=== PATIENT | female | born 1955 | race Caucasian/White ===

== ENCOUNTER 2017-03-07 12:50 | Emergency (ER) | payer BC ==
[2017-03-07 12:55] VITALS: BP 178/94; BMI 23.6
--- NOTE | 2017-03-07 14:26 | DR.GENAD ---
HPI - PCP Primary Care Physician: MARCI - HPI Comment HPI Comment: PAIN NOTED AFTER EATING. DID NOT RESPOND TO MEDICATIONS AT HOME FOR REFLUX. PAIN IS WORSE TODAY. - Complaint/Symptoms Chief Complaint Doctors Comments: SUBSCABULAR CHEST PAIN RADIATING LT LEFT CHEST TIMES ONE DAY. Chief Complaint:: PATIENT STATED THAT SHE HAS HAD UPPER BACK PAIN AND CHEST PAIN SINCE SHE ATE SUPPER LAST NIGHT - Nurses notes reviewed Nurses Notes Review: Yes - Source History Provided: Patient - Mode of Arrival Mode of Arrival: Ambulatory - Timing Onset of Chief Complaint: 03/05/17 Came on: Suddenly - Duration Duration: Constant Duration: Days - Severity Severity: Moderate PMH - PMH Past Medical History: Yes Past Medical History: Hypothyroidism Past Surgical History: Yes Surgical History: , Hysterectomy, Ortho Surgery - Family History History of Family Medical Conditions: Yes Family Medical History: Cancer, Coronary Artery Disease Family Medical History Comment: RENAL, A-FIB, PACEMAKER, COPD - Social History Does patient currently use any type of tobacco product: No Have you used tobacco products in the last 12 months: No Type of Tobacco Use: None Does any household member use tobacco: No Alcohol Use: None Do you use any recreational Drugs:: No Lives With: Family Lives Where: Home - infectious screening In the last 2 months have you had wt loss of >10#?: NO Have you had fever, night sweats or hemotysis?: No Have you traveled outside the country in the last 6 months?: No Isolation: Standard ROS - Review of Systems Constitutional: negative: Malaise, Weakness, Fatigue Eyes: No Symptoms Reported. negative: Eye Pain, Discharge ENTM: No Symptoms Reported, Nose Congestion. negative: Ear Pain, Nose Discharge , Throat Pain Respiratoy: No Symptoms Reported Cardiovascular: Chest Pain, Other (LEFT SUBSCAPULAR PAIN) Gastrointestinal/Abdominal: Abdominal Pain, Nausea. negative: Diarrhea, Vomiting Genitourinary: No Symptoms Reported. negative: Dysuria, Frequency, Hematuria Neurological: Weakness. negative: Headache, Dizziness Musculoskeletal: Muscle Pain Integumentary: No Symptoms Reported Hematologic/Lymphatic: No Symptoms Reported Endocrine: No Symptoms Reported All Other Systems: Reviewed and Negative PE - Vital Signs Vitals: Temperature 98.2 F Pulse Rate 63 Respiratory Rate 20 Blood Pressure 178/94 O2 Sat by Pulse Oximetry 97 - General Limitations: No Limitations General Appearance: Alert - Head Head Exam: Normal Inspection - Eyes Eye exam: Normal Appearance - ENT ENT Exam: Normal External Ear Exam External Ear Exam: Normal External Inspection TM/Canal Exam: Bilateral Normal Nose Exam: Normal Nose Exam Mouth Exam: Normal Inspection Throat Exam: Normal Inspection - Neck Neck Exam: Normal Inspection - Chest Chest Inspection: Symmetric Chest Wall Rise - Respiratory Respiratory Exam: Normal Lung Sounds Bilat Respiratory Exam: Bilateral Clear to Auscultation - Cardiovascular Cardiovascular Exam: Regular Rate, Normal Rhythm, Normal Heart Sounds - Abdominal Exam Abdominal Exam: Normal Bowel Sounds - Extremities Extremities Exam: Normal Inspection - Back Back Exam: Normal Inspection - Neurologic Neurological Exam: Alert, Oriented X3 - Psychiatric Psychiatric Exam: Normal Affect - Skin Skin Exam: Normal Color MDM - Additional Information Additional Information Obtained From: Family - Differential Diagnosis Differential Diagnosis: CHEST PAIN, DE, PNEUMONIA, MUSCULOSKELETAL PAIN. Course - Treatment Treatment: SEE ORDERS. - Education/Counseling Education/Counseling: Patient, Family, Education Educated On: Diagnosis, Needs for Follow Up ROR - Labs Reviewed Laboratory Results Reviewed?: Yes Result Diagrams: 03/07/17 14:35 03/07/17 14:35 Laboratory: WBC 9.5 X10^3/uL (3.6-10.0) 03/07/17 14:35 RBC 4.92 X10^6/uL (3.5-5.4) 03/07/17 14:35 Hgb 12.5 g/dL (12.0-16.0) 03/07/17 14:35 Hct 38.4 % (36.0-47.0) 03/07/17 14:35 MCV 78.0 fL (80.0-100.0) L 03/07/17 14:35 MCH 25.4 pg (27.0-34.0) L 03/07/17 14:35 MCHC 32.5 g/dL (33.0-35.0) L 03/07/17 14:35 RDW 15.2 % (11.6-16.5) 03/07/17 14:35 Plt Count 312 X10^3/uL (150.0-450.0) 03/07/17 14:35 Plt Count Comment Adequate (ADEQUATE) 03/07/17 14:35 MPV 9.6 fL (7.4-11.0) 03/07/17 14:35 Neut % 55.0 % (42.0-75.0) 03/07/17 14:35 Lymph % 35.9 % (21.0-51.0) 03/07/17 14:35 [place] % 6.1 % (0.0-13.0) 03/07/17 14:35 Eos % 2.1 % (0.9-2.9) 03/07/17 14:35 Baso % 0.9 % (0.2-1.0) 03/07/17 14:35 Neut # 5.2 x10^3/uL (2.2-4.8) H 03/07/17 14:35 Lymph # 3.4 X10^3/uL (1.3-2.9) H 03/07/17 14:35 [place] # 0.6 x10^3/uL (0.3-0.8) 03/07/17 14:35 Eos # 0.2 x10^3/uL (0.0-0.2) 03/07/17 14:35 Baso # 0.1 X10^3/uL (0.0-0.1) 03/07/17 14:35 Absolute Nucleated RBC 0.0 /100WBC 03/07/17 14:35 Plt Morphology Comment Normal (NORMAL) 03/07/17 14:35 RBC Morphology Abnormal (NORMAL) A 03/07/17 14:35 Hypochromasia Slight A 03/07/17 14:35 Microcytosis Slight A 03/07/17 14:35 Sodium 145 mmol/L (136-145) 03/07/17 14:35 Corrected Sodium TNP 03/07/17 14:35 Potassium 3.6 mmol/L (3.5-5.1) 03/07/17 14:35 Chloride 106 mmol/L (98-107) 03/07/17 14:35 Carbon Dioxide 30.8 mmol/L (21-32) 03/07/17 14:35 BUN 16 mg/dL (7-18) 03/07/17 14:35 Creatinine 0.85 mg/dL (0.55-1.02) 03/07/17 14:35 Est GFR (MDRD) Af Amer > 60 (>60) 03/07/17 14:35 Est GFR (MDRD) Non-Af > 60 (>60) 03/07/17 14:35 Glucose 95 mg/dL (65-99) 03/07/17 14:35 Calcium 8.9 mg/dL (8.5-10.1) 03/07/17 14:35 Corrected Calcium TNP 03/07/17 14:35 Total Bilirubin 0.30 mg/dL (0.2-1.0) 03/07/17 14:35 AST 18 Units/L (15-37) 03/07/17 14:35 ALT 27 Units/L (12-78) 03/07/17 14:35 Alkaline Phosphatase 77 Units/L (46-116) 03/07/17 14:35 Creatine Kinase 133 Units/L (26-192) 03/07/17 14:35 CK-MB (CK-2) 1.6 ng/mL (0-4.0) 03/07/17 14:35 CK/CKMB % Calc 1.2 % (<4) 03/07/17 14:35 Troponin I < 0.02 ng/mL (0-1.5) 03/07/17 14:35 B-Natriuretic Peptide 48.4 pg/mL (0-79) 03/07/17 14:35 Total Protein 7.9 g/dL (6.4-8.2) 03/07/17 14:35 Albumin 3.9 g/dL (3.4-5.0) 03/07/17 14:35 Globulin 4.0 g/dL (2.5-4.5) 03/07/17 14:35 Albumin/Globulin Ratio 1.0 Ratio (1.1-2.1) L 03/07/17 14:35 Amylase 88 Units/L (25-115) 03/07/17 14:30 Lipase 145 Units/L (73-393) 03/07/17 14:30 H. pylori IgG Antibody Negative (NEGATIVE) 03/07/17 14:30 - XRAY XRAY Interpreted by: Radiologist XRAY Findings: REPORT DISCUSS WITH PATIENT AND HER . - EKG Rhythm: NSR (EKG NOTED) - Diagnosis Discharge Problem: Chest pain Qualifiers: Chest pain type: other chest pain Qualified Code(s): R07.89 - Other chest pain ; R07.8 - Other chest pain Strain of thoracic region Qualifiers: Encounter type: initial encounter Qualified Code(s): S29.019A - Strain of muscle and tendon of unspecified wall of thorax, initial encounter - Discharge Plan Disposition: 01 HOME, SELF-CARE Condition: Stable Prescriptions: Cyclobenzaprine HCl [FLEXERIL 10 MG *] 10 mg PO TID PRN #20 tab PRN Reason: Ibuprofen [MOTRIN TAB 600 MG *] 600 mg PO TID PRN #20 tab PRN Reason: Pain/Inflammation Ranitidine HCl [ZANTAC TAB 150 MG *] 150 mg PO BID #60 tab - Follow ups/Referrals Follow ups/Referrals: CHRISTIANO COVARRUBIAS [Primary Care Provider] - 3 days - Instructions Instructions: Chest Pain Observation, Thoracic Strain, [id number] Additional Instructions: RETURN TO ED IF WORSE.
[2017-03-07 14:46] LABS: BASOPHILS # (AUTO) 0.1 X10^3/uL (0.0-0.1); BASOPHILS % (AUTO) 0.9 % (0.2-1.0); EOSINOPHILS # (AUTO) 0.2 x10^3/uL (0.0-0.2); EOSINOPHILS % (AUTO) 2.1 % (0.9-2.9); HEMATOCRIT 38.4 % (36.0-47.0); HEMOGLOBIN 12.5 g/dL (12.0-16.0); LYMPHOCYTES # (AUTO) 3.4 X10^3/uL (1.3-2.9); LYMPHOCYTES % (AUTO) 35.9 % (21.0-51.0); MEAN CORPUSCULAR HEMOGLOBIN 25.4 pg (27.0-34.0); MEAN CORPUSCULAR HGB CONC 32.5 g/dL (33.0-35.0); MEAN PLATELET VOLUME 9.6 fL (7.4-11.0); MONOCYTES # (AUTO) 0.6 x10^3/uL (0.3-0.8); MONOCYTES % (AUTO) 6.1 % (0.0-13.0); NEUTROPHILS # (AUTO) 5.2 x10^3/uL (2.2-4.8); PLATELET COUNT 312 X10^3/uL (150.0-450.0); RED BLOOD COUNT 4.92 X10^6/uL (3.5-5.4); RED CELL DISTRIBUTION WIDTH 15.2 % (11.6-16.5); WHITE BLOOD COUNT 9.5 X10^3/uL (3.6-10.0)
--- NOTE | 2017-03-07 14:52 | RAD ---
HISTORY: Chest pain Study: Chest one view Comparison: None Findings: The trachea is midline. The cardiac silhouette is enlarged. No congestive heart failure is noted.. The lungs are clear without focal infiltrate or effusion. The bony thorax is unremarkable. IMPRESSION: 1. Cardiomegaly without congestive heart failure 2. Lungs clear Reported By:
[2017-03-07 15:05] LABS: HYPOCHROMASIA SLIGHT; MICROCYTOSIS SLIGHT; PLATELET MORPHOLOGY COMMENT NORMAL (NORMAL)
[2017-03-07 15:10] LABS: BLOOD UREA NITROGEN 16 mg/dL (7-18); CALCIUM 8.9 mg/dL (8.5-10.1); CARBON DIOXIDE 30.8 mmol/L (21-32); CHLORIDE 106 mmol/L (98-107); CREATININE 0.85 mg/dL (0.55-1.02); GLUCOSE 95 mg/dL (65-99); SODIUM 145 mmol/L (136-145); TROPONIN I < 0.02 ng/mL (0-1.5); eGFR BLACK RACES > 60 (>60); eGFR NON BLACK RACES > 60 (>60)
[2017-03-07 15:14] LABS: ALANINE AMINOTRANSFERASE 27 Units/L (12-78); ALBUMIN 3.9 g/dL (3.4-5.0); ALKALINE PHOSPHATASE 77 Units/L (46-116); ASPARTATE AMINO TRANSFERASE 18 Units/L (15-37); CKMB % 1.2 % (<4); CREATINE KINASE 133 Units/L (26-192); CREATINE KINASE MB 1.6 ng/mL (0-4.0); TOTAL PROTEIN 7.9 g/dL (6.4-8.2)
[2017-03-07 15:15] LABS: B-TYPE NATRIURETIC PEPTIDE 48.4 pg/mL (0-79)
[2017-03-07 16:05] LABS: AMYLASE 88 Units/L (25-115); LIPASE 145 Units/L (73-393)
== END 2017-03-07 16:46 | disposition home or self-care (01) ==
LOC: ER 13:11
DX: S29.019A Strain of muscle and tendon of unspecified wall of thorax, initial encounter (principal); R07.89 Other chest pain; Y33.XXXA Other specified events, undetermined intent, initial encounter
CPT/HCPCS: 36415; 71010; 80053; 82150; 82550; 82553; 83690; 83880; 84484; 85025; 86677; 93005; 93010; 99282; 99283